=== PATIENT | male | born 1945 | race Caucasian/White ===

== ENCOUNTER 2016-11-26 04:10 | Day surgery (SDC) | payer OTHER ==
[2016-11-19 11:38] LABS: HEMATOCRIT 40.2 % (40.0-51.0); HEMOGLOBIN 13.5 g/dL (13.6-17.8)
[2016-11-19 11:53] LABS: BUN (BLOOD UREA NITROGEN) 27 MG/DL (6-23); CALCIUM, SERUM 9.7 MG/DL (8.5-10.4); CHLORIDE, SERUM 103 MMOL/L (96-112); CO2 (CARBON DIOXIDE) 31 MMOL/L (24-34); CREATININE 1.86 MG/DL (0.70-1.30); GFR AFRICAN AMERICAN 41 ML/MIN (>=60); GFR NON AFRICAN AMERICAN 35 ML/MIN (>=60); GLUCOSE, SERUM 90 MG/DL (60-99); POTASSIUM, SERUM 4.4 MMOL/L (3.5-5.3); SODIUM, SERUM 142 MMOL/L (135-148)
--- NOTE | ~2016-11-26 | OP ---
Record Of Operation [facility] [address] [place]. [address] NAME: ONESIMO MCGINNIS : 43 [place]US : [place] [facility] [place] PAT#: [id number] AGE: 71 ADM/REG DATE : 11/26/16 MR#: [id number] REPORT SERV DATE: 11/26/16 DICTATED BY: DHARMESH PETERSEN DATE: 11/26/16 REPORT STATUS : Draft TRANSCRIBED BY: MODL DATE: 11/26/16 DATE OF PROCEDURE: PREOPERATIVE DIAGNOSES: 1. Spinal stenosis with left-sided radiculopathy, L3-4. 2. Herniated nucleus pulposus far-lateral zone left L4-5 with radiculopathy. POSTOPERATIVE DIAGNOSES: 1. Spinal stenosis with left-sided radiculopathy, L3-4. 2. Herniated nucleus pulposus far-lateral zone left L4-5 with radiculopathy. PROCEDURES: 1. Microscopic and navigation-assisted surgery. 2. Left L3-4 hemilaminotomy, foraminotomy, partial medial facetectomy, bilateral decompression through unilateral approach. 3. Left L4-5 far lateral microdiskectomy. SURGEON: Dharmesh Petersen D.O. [employer]: Joel. ANESTHESIA: General. BLOOD LOSS: 10 mL. INDICATIONS FOR SURGERY: A 71-year-old male with rather severe intractable pain that follows mostly in L4 distribution. The patient has had plain x-rays, which reveal spondylosis, but no gross deformities, no instabilities etc. MRI shows moderate to severe spinal stenosis, central canal lateral recess at L3-4. There is also a large HNP in the mid and lateral far lateral zones of the foramen on the left. The L4 nerve root is compressed both at the L3-4 traversing level as well as the L4-5 exiting level. The patient does have a partial drop foot associated with the weakness. There was also some mild degree of quadriceps weakness. He does have some difficulty climbing stairs. He is brought to surgery for the above surgery having failed conservative care. Prior to surgery, risks, benefits, alternatives, and expectations explained. Consent form is signed. DESCRIPTION OF PROCEDURE: Antibiotic prophylaxis given. Neurophysiology monitoring leads were inserted. The patient was brought to the operative suite. General anesthetic including endotracheal intubation was administered. The patient was placed prone on a Taj spine frame. Bony prominences were carefully padded. Thoracolumbar spine was scrubbed with Hibiclens solution. DuraPrep was painted and sterile drapes applied. Because of the complexity of surgery, they need to identify correct level of surgery intraoperatively as well as desire to carry out the safest and most precise dissection. I felt intraoperative navigation was mandatory. Record Of Operation [facility] [address] [place]. [address] NAME: ONESIMO MCGINNIS : 43 STATUS : [place] [facility] [place] PAT#: [id number] AGE: 71 ADM/REG DATE : 11/26/16 MR#: [id number] REPORT SERV DATE: 11/26/16 DICTATED BY: DHARMESH PETERSEN DATE: 11/26/16 REPORT STATUS : Draft TRANSCRIBED BY: [place] DATE: 11/26/16 A small stab wound was carried out over the right posterior superior iliac spine. A percutaneous pin with navigational frame attached was inserted in PSIS. Intraoperative CT scan with the O-arm obtained. CT information used to register the navigational system. With navigational assistance, I initially identified the midline at L3-4 just left of midline. A 2 cm skin incision was carried out. A blunt navigated probe placed through the fascia and muscle and docked over the interlaminar space. Muscle dilators were inserted followed by placement of a tubular retractor attached to an arm mount on the table. The microscope was sterilely draped and used throughout the remainder of the procedure. With navigational assistance, I identified the amount of lamina of L3. I wanted to remove in order to reach the cephalad boundary of the disk space. I also determined the amount of medial facet joint to remove in order to reach the lateral aspect of the thecal sac. I used a 3 mm pippa robyn and removed approximately 60% of the lamina of L3, approximately 25% of medial facet joint. The hypertrophied ligamentum flavum was removed. The medial aspect of the facet joint was removed which was definitely hypertrophied and causing impingement on the traversing nor nerve root. We turned the patient bed as a unit and I worked across the center of the posterior aspect of the thecal sac. I decompressed the ligamentum flavum all the way to the opposite for lateral recess due and bilateral decompression through unilateral approach. The disk itself was not hernias or impinging the L3-4 level. The wound was irrigated. The retractor was removed. Next, we moved to the L4-5 level and just lateral to the facet joint of L4-5, a 2 cm skin incision was carried out. A blunt navigated probe placed over the lateral aspect of the foramen just outside the facet joint. We docked the bottom of the tubular retractor over the transverse process of L5, and it extended basically proximal to the inferior side of the transverse process of L4. We carefully identified the cephalad border of the L5 transverse process. The muscle was gently released and retracted. Inner transverse ligament was released. I used a pippa robyn to remove a small amount of superior lateral corner of the L5 superior facet. I identified the exiting nerve root and gently protected with the retractor. We then localized and extruded large disk herniation, which was removed with pituitary rongeur. After the microdiskectomy, the wound was irrigated. The nerve was nicely decompressed. The retractor was removed. The fascial opening was closed both incisions with a single interrupted #1 Vicryl suture. The subcutaneous tissue closed with 2 0 Vicryl sutures, 2-0 vertical mattress nylon suture used for skin closure. Sterile dressings applied. The patient returned to supine position, awakened, extubated, taken to recovery room in satisfactory condition having tolerated procedure well. CL[place]IS[place] Dharmesh Petersen D.O. / [id number] Record Of Operation [address] [address] NAME: ONESIMO MCGINNIS : 43 STATUS : [place] [facility] [place] PAT#: [id number] AGE: 71 ADM/REG DATE : 11/26/16 MR#: [id number] REPORT SERV DATE: 11/26/16 DICTATED BY: DHARMESH PETERSEN DATE: 11/26/16 REPORT STATUS : Draft TRANSCRIBED BY: [place] DATE: 11/26/16 CC: Frances Brennan M.D.
[~2016-11-26 04:10] MED LIST: ATEN25 PO; BEE POLLEN PO; CENTRUM PO; FLEX PO; HALF81 PO; HYDROCHLOROT25 MG PO; IBU800 PO; JANUVIA100 MG PO; NEXIUM40 PO; NXL3 PO; OS500+D PO; TOPXL50 PO; ZOCOR40 PO; [UNRECOGNIZED DRUG - OTHER] PO
[2017-02-22] MEDS ORDERED: PLAVIX PO (09:17)
[2017-02-22] MEDS ORDERED: COREG6 PO (09:18)
[2017-02-22] MEDS ORDERED: L20 PO (09:18)
[2017-02-22] MEDS ORDERED: NITROQUICK0.4 MG SL (09:19)
== END 2016-11-26 21:07 | disposition home or self-care (01) ==
LOC: SDC 04:10
PROVIDERS: Orthopaedic Surgery Orthopaedic Surgery of the Spine
PROC: 0SB20ZZ Excision of Lumbar Vertebral Disc, Open Approach (ICD-10-PCS; principal; 2016-11-26 05:45)
PROC: 01NB0ZZ Release Lumbar Nerve, Open Approach (ICD-10-PCS; 2016-11-26 05:45)
DX: M51.16 Intervertebral disc disorders with radiculopathy, lumbar region (principal); M48.06 Spinal stenosis, lumbar region; E78.5 Hyperlipidemia, unspecified; I12.9 Hypertensive chronic kidney disease with stage 1 through stage 4 chronic kidney disease, or unspecified chronic kidney disease; E11.51 Type 2 diabetes mellitus with diabetic peripheral angiopathy without gangrene; E11.22 Type 2 diabetes mellitus with diabetic chronic kidney disease; N18.9 Chronic kidney disease, unspecified; I25.2 Old myocardial infarction; Z95.1 Presence of aortocoronary bypass graft; Z88.5 Allergy status to narcotic agent; Z79.82 Long term (current) use of aspirin; Z79.52 Long term (current) use of systemic steroids; Z79.1 Long term (current) use of non-steroidal anti-inflammatories (NSAID); Z79.899 Other long term (current) drug therapy; Z79.891 Long term (current) use of opiate analgesic; Z86.73 Personal history of transient ischemic attack (TIA), and cerebral infarction without residual deficits; Z90.49 Acquired absence of other specified parts of digestive tract; Z98.890 Other specified postprocedural states
CPT/HCPCS: 80048; 82962; 85014; 85018; 88304; 88311; 93005; A9270-GY; J0690; J2250; J2274; J2405; J2550; J2710; J3010

== ENCOUNTER 2016-11-27 06:47 | Emergency (ER) | payer OTHER ==
[2016-11-27 05:01] LABS: BASOPHILS 0.2 %; BASOPHILS ABSOLUTE 0.03 10/3/uL (0.0-0.16); EOSINOPHILS 0.2 %; EOSINOPHILS ABSOLUTE 0.03 10/3/uL (0.0-0.53); HEMOGLOBIN 12.1 g/dL (13.6-17.8); IMMATURE GRANULOCYTES 0.3 %; IMMATURE GRANULOCYTES ABSOLUTE 0.05 10/3/uL (0.0-0.11); LYMPHOCYTES 5.1 %; LYMPHOCYTES ABSOLUTE 0.75 10/3/uL (0.67-4.30); MEAN CORPUS HGB CONC 34.4 g/dL (32.0-36.0); MEAN CORPUSCULAR HEMOGLOB 31.1 pg (26.0-34.0); MEAN CORPUSCULAR VOLUME 90.5 fL (80-100); MEAN PLATELET VOLUME 10.1 fL (9.2-13.0); MONOCYTES 10.8 %; MONOCYTES ABSOLUTE 1.59 10/3/uL (0.21-1.20); NEUTROPHILS 83.4 %; NEUTROPHILS ABSOLUTE 12.33 10/3/uL (2.02-8.40); PLATELET COUNT 161 10/3/uL (150-400); RBC DISTRIBUTION WIDTH 13.2 % (12.0-16.0); RED CELL COUNT 3.89 10/6/uL (4.7-6.1)
[2016-11-27 05:04] LABS: ER CBC TAT 0 Hrs 11 Mins; HEMATOCRIT 35.2 % (40.0-51.0); MANUAL DIFF NO %; WHITE BLOOD CELLS 14.8 10/3/uL (4.5-10.5)
[2016-11-27 05:17] LABS: CALCIUM, SERUM 8.8 MG/DL (8.5-10.4); CHLORIDE, SERUM 101 MMOL/L (96-112); CO2 (CARBON DIOXIDE) 29 MMOL/L (24-34); CREATININE 1.64 MG/DL (0.70-1.30); GFR AFRICAN AMERICAN 48 ML/MIN (>=60); GFR NON AFRICAN AMERICAN 41 ML/MIN (>=60); POTASSIUM, SERUM 3.7 MMOL/L (3.5-5.3); SODIUM, SERUM 137 MMOL/L (135-148)
[2016-11-27 05:18] LABS: ASCORBIC ACID (UR NOT ORDER) NEG (NEG); BILIRUBIN, URINE NEGATIVE (NEG); ER URINALYSIS TAT 0 Hrs 00 Mins; KETONE, URINE NEGATIVE (NEG); LEUKOCYTE ESTERASE(NOT OR NEG (NEG); NITRITE (URINE) NEG (NEG); WBC (NOT ORDERED) (RFLEX) < 1 (0-5)
[2016-11-27 05:27] LABS: BUN (BLOOD UREA NITROGEN) 22 MG/DL (6-23); GLUCOSE, SERUM 142 MG/DL (60-99)
[2017-02-22] MEDS ORDERED: PLAVIX PO (09:17)
[2017-02-22] MEDS ORDERED: L20 PO (09:18)
[2017-02-22] MEDS ORDERED: COREG6 PO (09:18)
[2017-02-22] MEDS ORDERED: NITROQUICK0.4 MG SL (09:19)
== END 2016-11-27 07:00 | disposition home or self-care (01) ==
LOC: ER 06:47
PROVIDERS: Specialist
PROC: 0T2BX0Z Change Drainage Device in Bladder, External Approach (ICD-10-PCS; principal; 2016-11-27)
DX: R33.9 Retention of urine, unspecified (principal); I12.9 Hypertensive chronic kidney disease with stage 1 through stage 4 chronic kidney disease, or unspecified chronic kidney disease; N18.9 Chronic kidney disease, unspecified; E10.22 Type 1 diabetes mellitus with diabetic chronic kidney disease; Z95.1 Presence of aortocoronary bypass graft; Z87.891 Personal history of nicotine dependence; Z88.5 Allergy status to narcotic agent; Z88.8 Allergy status to other drugs, medicaments and biological substances; Z79.82 Long term (current) use of aspirin
CPT/HCPCS: 80048; 81001; 85025; 99283